=== PATIENT | male | born 1995 | race Caucasian/White ===

== ENCOUNTER → 2022-12-07 | Outpatient (CLI) | payer BC ==
--- NOTE | 2022-12-07 09:54 | US ---
EXAMINATION TYPE: US abdomen complete DATE OF EXAM: 12/07/2022 COMPARISON: NONE CLINICAL INDICATION: Male, 27 years old with history of R14.0 R10.84; Abdominal pain TECHNIQUE: Multiple sonographic images of the abdomen are obtained. FINDINGS: EXAM MEASUREMENTS: Liver Length: 17.3 cm Gallbladder Wall: 0.2 cm CBD: 0.2 cm Spleen: 11.5 cm Right Kidney: 11.0 x 5.4 x 6.2 cm Left Kidney: 11.0 x 6.0 x 6.0 cm RN PSYCHIATRIC NOTES: technical limitations due to large amount of overlying bowel content Pancreas: Obscured by bowel gas Liver: appears wnl Gallbladder: no evidence of stones Evidence for sonographic Mendiola's sign: no CBD: wnl Spleen: wnl Right Kidney: no evidence of hydronephrosis Left Kidney: no evidence of hydronephrosis Upper IVC: wnl Abd Aorta: wnl The liver is homogenous. The intrahepatic portion of the IVC and proximal abdominal aorta are within normal limits. There is no evidence of cholelithiasis. Common bile duct is unremarkable. The visu alized portions of the pancreas are homogenous. The spleen is unremarkable. Kidneys are symmetric a nd free of hydronephrosis. No renal lesions are seen. IMPRESSION: No significant abnormality appreciated.
--- NOTE | 2022-12-07 10:31 | FL ---
EXAMINATION TYPE: FL UGI DATE OF EXAM: 12/07/2022 COMPARISON: NONE HISTORY: R140, R1084, TECHNIQUE: A single/double contrast UGI study is performed. A total of 69 seconds of fluoroscopic t mis was utilized during procedure and 15 images obtained. Total DAP 847.03 . FINDINGS: [employer]in [employer] Hand image of the abdomen shows no gross abnormality. The esophagus shows normal motility and emptying into the stomach. No evidence of hiatal hernia or s tricture noted. The stomach shows normal distensibility, peristalsis, and mucosal folds. No evidence of any mass or ulcer disease. No significant gastroesophageal reflux was seen during real time performance of this study. The duodenal bulb, sweep, and proximal small bowel loops are unremarkable. IMPRESSION: Normal upper GI study.
== END | disposition home or self-care (01) ==
LOC: RADUSWWP 09:10
PROVIDERS: ATTEND Family Medicine
DX: R14.0 Abdominal distension (gaseous) (principal); R10.84 Generalized abdominal pain
CPT/HCPCS: 74240; 76700